=== PATIENT | male | born 1990 | race Caucasian/White ===

== ENCOUNTER 2018-12-25 08:09 | Inpatient (IN) | payer OTHER ==
[2018-12-25 09:36] VITALS: BMI 23.7
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
[2018-12-25] MEDS ORDERED: MENTHOL/PHENOL 1 EACH UD MM PRN (09:55)
[2018-12-25] MEDS ORDERED: P-EPHED 60MG/TRIPROLIDI 2.5MG TABLET PO PRN (09:55)
[2018-12-25] MEDS ORDERED: MAGNESIUM CITRATE 300 ML BOTTLE PO PRN (09:55)
[2018-12-25] MEDS ORDERED: MAGNESIUM HYDROX 2400MG/30ML ORAL SUSPENSION 30 ML CUP PO PRN (09:55)
[2018-12-25] MEDS ORDERED: guaiFENesin 200 MG/10 ML 10 ML UNIT-DOSE CUPS PO PRN (09:55)
[2018-12-25] MEDS ORDERED: MAG HYDROX/AL HYDROX/SIMETH 30 ML UNIT-DOSE CUP PO PRN (09:55)
[2018-12-25] MEDS ORDERED: LORazepam 1 MG TABLET PO PRN (09:55)
[2018-12-25] MEDS ORDERED: LOPERAMIDE HCL 2 MG CAPSULE PO PRN (09:55)
[2018-12-25] MEDS ORDERED: ACETAMINOPHEN 325 MG TABLET (FP) PO PRN (09:55)
[2018-12-25] MEDS ORDERED: hydrOXYzine PAMOATE 25 MG CAPSULE (FP) PO PRN (09:55)
[2018-12-25] MEDS ORDERED: IBUPROFEN 400 MG TABLET (FP) PO PRN (09:55)
[2018-12-25] MEDS ORDERED: LORazepam 2 MG TABLET PO SCH (11:00)
[2018-12-25 13:10] LABS: HEMATOCRIT 41.2 % (35.4-49); HEMOGLOBIN 14.1 GM/dL (11.7-16.9); MCH 30.1 pg (25.7-33.7); MCHC 34.3 g/dl (32.0-35.9); MEAN CELL VOLUME 87.5 fl (80-96); MEAN PLT VOLUME 9.5 fl (7.5-11.1); PLATELET COUNT 180 K/MM3 (134-434); RBC 4.71 M/mm3 (4.00-5.60); WHITE BLOOD COUNT 5.8 K/mm3 (4.0-10.0)
[2018-12-25 13:17] LABS: ALBUMIN 4.2 g/dl (3.4-5.0); BILIRUBIN,TOTAL 2.5 mg/dL (0.2-1); CALCIUM 8.7 mg/dL (8.5-10.1); CREATININE 0.8 mg/dL (0.55-1.3); POTASSIUM 4.4 mmol/L (3.5-5.1); TOT PROT 7.4 g/dl (6.4-8.2)
[2018-12-25] MEDS ORDERED: METHOCARBAMOL 500 MG TABLET PO PRN (15:51)
[2018-12-25] MEDS: NICOTINE 14 MG/24 HOURS TOPICAL PATCH TD SCH (15:55)
[2018-12-25] MEDS: PRENATAL VITAMINS W/ FOLIC ACID TABLET (FP) PO SCH (15:55)
--- NOTE | 2018-12-25 15:57 | PN ---
[facility] Progress Note Note: Pt is a new pt admitted to rehab today from [facility] and c/o leg pain and muscle cramps. pt reports he was at the stabilization center in [place] from Tuesday and was brought in here today for treatment. Pt reports he is using xanax and adderall sometimes Rx and sometimes buys on the street. pt reports he has a primary care provider/Prescriber Dr. Jeancarlos Guadalupe and goes to [facility] for medical management. Alert o x 3. in NAD. Below are patients medication hx from PNP online: Others' Prescriptions Patient Name: Nic Painting Date: 1990 Address: [address] [place] [address] Sex: Male Rx Written Rx Dispensed Drug Quantity Days Supply Prescriber Name 12/12/2018 12/14/2018 dextroamp-amphetamin 20 mg tab 60 30 Jeancarlos Guadalupe 12/01/2018 12/01/2018 dextroamp-amphetamin 20 mg tab 45 15 Jeancarlos Guadalupe Patient Name: Nic Painting Date: 1990 Address: [address] [place] [address] Sex: Male Rx Written Rx Dispensed Drug Quantity Days Supply Prescriber Name 11/28/2018 11/28/2018 alprazolam 2 mg tablet 90 30 Jeancarlos Guadalupe 11/28/2018 11/28/2018 dextroamp-amphetamin 15 mg tab 30 30 Jeancarlos Guadalupe 11/21/2018 11/21/2018 alprazolam 2 mg tablet 60 30 Jeancarlos Guadalupe 11/07/2018 11/07/2018 alprazolam 2 mg tablet 30 15 Jeancarlos Guadalupe 10/27/2018 10/27/2018 alprazolam 1 mg tablet 90 30 Jeancarlos Guadalupe 09/19/2018 09/21/2018 hydromorphone 4 mg tablet 28 7 Jeancarlos Guadalupe 09/19/2018 09/21/2018 alprazolam 1 mg tablet 90 30 Jeancarlos Guadalupe 09/19/2018 09/19/2018 hydromorphone 2 mg tablet 28 14 Jeancarlos Guadalupe 09/15/2018 09/15/2018 hydromorphone 4 mg tablet 28 7 Jeancarlos Guadalupe 07/10/2018 07/11/2018 dextroamp-amphetamin 30 mg tab 60 30 Anayeli, Jeancarlos Novoa 07/10/2018 07/11/2018 buprenorphine-naloxone 12-3 mg sl film 60 30 Anayeli, Jeancarlos Novoa 05/29/2018 06/30/2018 suboxone 8 mg-2 mg sl film 60 30 Anayeli, Jeancarlos Novoa 05/29/2018 06/03/2018 dextroamp-amphetamin 20 mg tab 60 30 Anayeli, Jeancarlos Novoa 05/29/2018 05/30/2018 clonazepam 1 mg tablet 30 15 AnayeliJeancarlos 03/03/2018 03/03/2018 dextroamp-amphetamin 20 mg tab 60 30 KinneyRachelle darling Npp 01/09/2018 02/02/2018 dextroamp-amphetamin 20 mg tab 60 30 KinneyRachelle Npp Patient Name: Nic Painting Date: 1990 Address: [address] [place] [address] [place] [address] Sex: Male Rx Written Rx Dispensed Drug Quantity Days Supply Prescriber Name 10/13/2018 10/19/2018 green vape 8mg thc and 8mg cbd/0.04ml dose 1 5 Jeancarlos Guadalupe 10/13/2018 10/13/2018 balance 50:50 1.41mg thc and 1.84mg cbd/inhalation 1 5 Jeancarlos Guadalupe Patient Name: Nic Painting Date: 1990 Address: [address] [place] [address] [place] [employer] [place] [place] [address] Sex: Male Rx Written Rx Dispensed Drug Quantity Days Supply Prescriber Name 10/14/2018 10/14/2018 clonazepam 1 mg tablet 90 30 AnayeliJeancarlos 10/06/2018 10/06/2018 alprazolam 2 mg tablet 90 30 Anayeli, Jeancarlos Novoa 09/01/2018 09/06/2018 buprenorphine-naloxone 4-1 mg sl film 90 30 Anayeli, Jeancarlos Novoa 09/06/2018 09/06/2018 alprazolam 1 mg tablet 75 15 Anayeli, Jeancarlos Novoa 09/06/2018 09/06/2018 dextroamp-amphetamin 15 mg tab 30 15 AnayeliJeancarlos 09/01/2018 09/02/2018 dextroamp-amphetamin 20 mg tab 60 30 Anayeli, Jeancarlos Novoa 09/01/2018 09/02/2018 clonazepam 1 mg tablet 90 30 Anayeli, Jeancarlos Novoa 08/04/2018 08/07/2018 buprenorphine-naloxone 4-1 mg sl film 90 30 Anayeli, Jeancarlos Novoa 08/04/2018 08/04/2018 dextroamp-amphetamin 20 mg tab 60 30 Anayeli, Jeancarlos Novoa 08/04/2018 08/04/2018 clonazepam 1 mg tablet 90 30 Anayeli, Jeancarlos Novoa 07/11/2018 08/04/2018 dextroamp-amphetamin 30 mg tab 60 30 Anayeli, Jeancarlos Sommer 07/26/2018 07/29/2018 suboxone 2 mg-0.5 mg sl film 30 15 Tavakkoli, Mohammad 06/30/2018 07/09/2018 clonazepam 1 mg tablet 60 20 Anayeli, Jeancarlos Novoa 06/30/2018 06/30/2018 dextroamp-amphetamin 20 mg tab 60 30 Anayeli, Jeancarlos Sommer 06/12/2018 06/20/2018 clonazepam 1 mg tablet 60 20 Anayeli, Jeancarlos Sommer 06/12/2018 06/12/2018 dextroamp-amphetamin 30 mg tab 30 30 Anayeli, Jeancarlos Sommer 05/29/2018 05/30/2018 suboxone 8 mg-2 mg sl film 60 30 Anayeli, Jeancarlos Novoa Patient Name: Nic Painting Date: 1990 Address: [facility] [place] [address] Sex: Male Rx Written Rx Dispensed Drug Quantity Days Supply Prescriber Name 09/01/2018 10/10/2018 sublocade 300 mg/1.5 ml syring 1gm 30 Anayeli Jeancarlos Novoa Patient Name: Nic Painting Date: 1990 Address: [place] [address] Sex: Male Rx Written Rx Dispensed Drug Quantity Days Supply Prescriber Name 04/19/2018 04/20/2018 dextroamp-amphetamin 20 mg tab 40 20 Anayeli, Jeancarlos Sommer 04/19/2018 04/20/2018 suboxone 8 mg-2 mg sl film 30 15 Anayeli, Jeancarlos Novoa 04/14/2018 04/14/2018 suboxone 8 mg-2 mg sl film 14 7 Anayeli, Jeancarlos Novoa 01/04/2018 01/04/2018 dextroamp-amphetamin 20 mg tab 60 30 Rachelle Kinney Npp * - Drugs marked with an asterisk are compound drugs. If the compound drug is made up of more than one controlled substance, then each controlled substance will be a separate row in the table. Click the Report Suspicious Activity button to report information related to controlled substance suspicious activity to the [place] [employer]. Click the Send Questions/Comments button to send questions about this report to the [place] [employer], or call . Click the Substance Abuse Treatment Information button to go to the Office of Alcoholism and Substance Abuse Services website, www.oasas.[place].gov or call 1- 856.680.5323. D/w Pt, will follow up with primary care provider after rehab treatment for medical management.
[2018-12-25] MEDS: DEXTROAMPHETAMINE/AMPHETAMINE 10 MG CAP.ER.24H PO SCH ×2 (17:30→21:39)
[2018-12-25] MEDS: clonazePAM 0.5 MG TABLET PO SCH ×2 (17:30→23:38)
[2018-12-25] MEDS: THIAMINE HCL 100 MG TABLET (FP) PO SCH (21:40)
[2018-12-25] MEDS ORDERED: MELATONIN 5 MG TABLETS PO PRN (22:00)
[2018-12-26] MEDS: clonazePAM 0.5 MG TABLET PO SCH ×4 (07:06→23:39)
[2018-12-26] MEDS: PRENATAL VITAMINS W/ FOLIC ACID TABLET (FP) PO SCH (10:10)
[2018-12-26] MEDS: NICOTINE 14 MG/24 HOURS TOPICAL PATCH TD SCH (10:10)
[2018-12-26] MEDS: DEXTROAMPHETAMINE/AMPHETAMINE 10 MG CAP.ER.24H PO SCH ×2 (10:10→21:44)
[2018-12-26 15:52] LABS: PH,URINE 7.5 (5.0-8.0); URINE APPEARANCE CLEAR; URINE BILIRUBIN NEGATIVE (NEGATIVE); URINE COLOR YELLOW; URINE GLUCOSE (UA) NEGATIVE (NEGATIVE); URINE KETONE NEGATIVE (NEGATIVE); URINE LEUK ESTERASE NEGATIVE (NEGATIVE); URINE NITRITE NEGATIVE (NEGATIVE); URINE PROTEIN NEGATIVE (NEGATIVE)
[2018-12-26] MEDS: THIAMINE HCL 100 MG TABLET (FP) PO SCH (21:44)
[2018-12-27] MEDS ORDERED: LORazepam 1 MG TABLET PO SCH (05:00)
[2018-12-27] MEDS: clonazePAM 0.5 MG TABLET PO SCH ×4 (05:39→23:49)
[2018-12-27] MEDS: DEXTROAMPHETAMINE/AMPHETAMINE 10 MG CAP.ER.24H PO SCH ×2 (10:03→21:26)
[2018-12-27] MEDS: NICOTINE 14 MG/24 HOURS TOPICAL PATCH TD SCH (10:03)
[2018-12-27] MEDS: PRENATAL VITAMINS W/ FOLIC ACID TABLET (FP) PO SCH (10:03)
--- NOTE | 2018-12-27 11:22 | PN ---
[facility] Progress Note Note: PT REPORTS TO NURSE THIS MORNING THAT HE WOULD LIKE TO SEE THE PSYCHIATRIST FOR HX OF ADHD-ON ADDERRAL SINCE AGE 14, DEPRESSION AND ANXIETY, AND PTSD. PATIENT WAS ALSO SEEN TODAY BY DR. GONZALES, IT INFRASTRUCTURE SPECIALIST TO DISCUSS PATIENT'S KLONOPIN TAPER AND ADDERRAL QUESTIONS PATIENT HAD. PATIENT IS AWARE THAT HE WILL CONTACT HIS PSYCHIATRIST, DR. SUMI COUCH AT [facility] FOR PLANS TO CONTINUE HIS MEDICATIONS AFTER DISCHARGE AND NO Rx WILL BE GIVEN FROM REHAB UPON DISCHARGE. PATIENT REPORTS HE HAS A PRIMARY CARE PROVIDER, DR. ZELAYA AT SAME LOCATION. Vital Signs - 24 hr 12/27/18 12/27/18 12/27/18 00:30 03:30 06:30 Temperature 97.7 F Pulse Rate 72 Respiratory 18 18 18 Rate Blood Pressure 95/62 Laboratory Tests 12/25/18 12/25/18 12/25/18 10:10 10:10 10:10 WBC 5.8 RBC 4.71 Hgb 14.1 Hct 41.2 MCV 87.5 MCH 30.1 MCHC 34.3 RDW 14.0 Plt Count 180 MPV 9.5 Sodium 137 Potassium 4.4 Chloride 101 Carbon Dioxide 29 Anion Gap 8 BUN 13.0 Creatinine 0.8 Est GFR (CKD-EPI)AfAm 139.91 Est GFR (CKD-EPI)NonAf 120.72 Random Glucose 90 Calcium 8.7 Total Bilirubin 2.5 H AST 113 H ALT 54 Alkaline Phosphatase 95 Total Protein 7.4 Albumin 4.2 Urine Color Urine Appearance Urine pH Ur Specific [place] Urine Protein Urine Glucose (UA) Urine Ketones Urine Blood Urine Nitrite Urine Bilirubin Urine Urobilinogen Ur Leukocyte Esterase RPR Titer Nonreactive 12/26/18 12:00 WBC RBC Hgb Hct MCV MCH MCHC RDW Plt Count MPV Sodium Potassium Chloride Carbon Dioxide Anion Gap BUN Creatinine Est GFR (CKD-EPI)AfAm Est GFR (CKD-EPI)NonAf Random Glucose Calcium Total Bilirubin AST ALT Alkaline Phosphatase Total Protein Albumin Urine Color Yellow Urine Appearance Clear Urine pH 7.5 Ur Specific [place] 1.013 Urine Protein Negative Urine Glucose (UA) Negative Urine Ketones Negative Urine Blood Negative Urine Nitrite Negative Urine Bilirubin Negative Urine Urobilinogen 1.0 Ur Leukocyte Esterase Negative RPR Titer A:PATIENT VERBAL HX OF PSYCH HISTORY PLAN:PSYCH CONSULT ORDERED PER PT'S REQUEST. PATIENT AGREES WITH POC DISCUSSED ABOVE TO FOLLOW UP WITH HIS PRIMARY CARE/ PSYCHIATRIST FOR MEDICAL/PSYCHIATRIC/MEDICATION MANAGEMENT AFTER REHAB.
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
[2018-12-27] MEDS: THIAMINE HCL 100 MG TABLET (FP) PO SCH (21:26)
[2018-12-28] MEDS ORDERED: LORazepam 0.5 MG TABLET PO PRN
[2018-12-28] MEDS ORDERED: LORazepam 0.5 MG TABLET PO SCH (05:00)
[2018-12-28] MEDS: clonazePAM 0.5 MG TABLET PO SCH ×4 (06:47→23:47)
[2018-12-28] MEDS: NICOTINE 14 MG/24 HOURS TOPICAL PATCH TD SCH (11:00)
[2018-12-28] MEDS: PRENATAL VITAMINS W/ FOLIC ACID TABLET (FP) PO SCH (11:00)
[2018-12-28] MEDS: DEXTROAMPHETAMINE/AMPHETAMINE 10 MG CAP.ER.24H PO SCH ×2 (11:00→21:22)
[2018-12-28] MEDS: THIAMINE HCL 100 MG TABLET (FP) PO SCH (21:22)
[2018-12-29] MEDS ORDERED: LORazepam 0.5 MG TABLET PO ONE (05:00)
[2018-12-29] MEDS: clonazePAM 0.5 MG TABLET PO SCH ×3 (06:43→18:00)
[2018-12-29] MEDS: NICOTINE 14 MG/24 HOURS TOPICAL PATCH TD SCH (10:13)
[2018-12-29] MEDS: PRENATAL VITAMINS W/ FOLIC ACID TABLET (FP) PO SCH (10:13)
[2018-12-29] MEDS: DEXTROAMPHETAMINE/AMPHETAMINE 10 MG CAP.ER.24H PO SCH ×2 (10:13→21:52)
[2018-12-29] MEDS: THIAMINE HCL 100 MG TABLET (FP) PO SCH (21:51)
[2018-12-30] MEDS: clonazePAM 0.5 MG TABLET PO SCH ×4 (00:23→17:51)
[2018-12-30] MEDS: DEXTROAMPHETAMINE/AMPHETAMINE 10 MG CAP.ER.24H PO SCH ×2 (10:03→21:33)
[2018-12-30] MEDS: NICOTINE 14 MG/24 HOURS TOPICAL PATCH TD SCH (10:03)
[2018-12-30] MEDS: PRENATAL VITAMINS W/ FOLIC ACID TABLET (FP) PO SCH (10:04)
[2018-12-30] MEDS: THIAMINE HCL 100 MG TABLET (FP) PO SCH (21:33)
[2018-12-31] MEDS: clonazePAM 0.5 MG TABLET PO SCH ×4 (06:41→18:00)
[2018-12-31] MEDS: DEXTROAMPHETAMINE/AMPHETAMINE 10 MG CAP.ER.24H PO SCH ×2 (10:39→21:54)
[2018-12-31] MEDS: PRENATAL VITAMINS W/ FOLIC ACID TABLET (FP) PO SCH (10:40)
[2018-12-31] MEDS: NICOTINE 14 MG/24 HOURS TOPICAL PATCH TD SCH (10:40)
[2018-12-31] MEDS: THIAMINE HCL 100 MG TABLET (FP) PO SCH (21:54)
[2019-01-01] MEDS: clonazePAM 0.5 MG TABLET PO SCH ×4 (00:23→21:29)
[2019-01-01] MEDS: NICOTINE 14 MG/24 HOURS TOPICAL PATCH TD SCH (10:42)
[2019-01-01] MEDS: PRENATAL VITAMINS W/ FOLIC ACID TABLET (FP) PO SCH (10:42)
[2019-01-01] MEDS ORDERED: DEXTROAMPHETAMINE/AMPHETAMINE 10 MG CAP.ER.24H PO ONE (13:00)
[2019-01-01] MEDS: THIAMINE HCL 100 MG TABLET (FP) PO SCH (21:29)
[2019-01-01] MEDS: DEXTROAMPHETAMINE/AMPHETAMINE 10 MG CAP.ER.24H PO SCH (21:29)
[2019-01-02] MEDS: DEXTROAMPHETAMINE/AMPHETAMINE 10 MG CAP.ER.24H PO SCH ×2 (10:20→21:21)
[2019-01-02] MEDS: clonazePAM 0.5 MG TABLET PO SCH ×2 (10:20→21:20)
[2019-01-02] MEDS: PRENATAL VITAMINS W/ FOLIC ACID TABLET (FP) PO SCH (10:21)
[2019-01-02] MEDS: NICOTINE 14 MG/24 HOURS TOPICAL PATCH TD SCH (10:21)
[2019-01-02] MEDS: THIAMINE HCL 100 MG TABLET (FP) PO SCH (21:21)
[2019-01-03] MEDS: PRENATAL VITAMINS W/ FOLIC ACID TABLET (FP) PO SCH (10:04)
[2019-01-03] MEDS: NICOTINE 14 MG/24 HOURS TOPICAL PATCH TD SCH (10:04)
[2019-01-03] MEDS: clonazePAM 0.5 MG TABLET PO SCH ×2 (10:05→21:21)
[2019-01-03] MEDS: DEXTROAMPHETAMINE/AMPHETAMINE 10 MG CAP.ER.24H PO SCH ×2 (10:05→21:21)
[2019-01-03] MEDS: THIAMINE HCL 100 MG TABLET (FP) PO SCH (21:22)
[2019-01-04] MEDS: NICOTINE 14 MG/24 HOURS TOPICAL PATCH TD SCH (10:12)
[2019-01-04] MEDS: DEXTROAMPHETAMINE/AMPHETAMINE 10 MG CAP.ER.24H PO SCH ×2 (10:12→21:21)
[2019-01-04] MEDS: PRENATAL VITAMINS W/ FOLIC ACID TABLET (FP) PO SCH (10:12)
[2019-01-04] MEDS: clonazePAM 0.5 MG TABLET PO SCH ×2 (10:13→21:21)
[2019-01-04] MEDS: THIAMINE HCL 100 MG TABLET (FP) PO SCH (21:22)
[2019-01-05] MEDS: PRENATAL VITAMINS W/ FOLIC ACID TABLET (FP) PO SCH (10:11)
[2019-01-05] MEDS: NICOTINE 14 MG/24 HOURS TOPICAL PATCH TD SCH (10:11)
[2019-01-05] MEDS: clonazePAM 0.5 MG TABLET PO SCH ×2 (10:11→21:42)
[2019-01-05] MEDS: DEXTROAMPHETAMINE/AMPHETAMINE 10 MG CAP.ER.24H PO SCH ×2 (10:11→21:42)
[2019-01-05] MEDS: THIAMINE HCL 100 MG TABLET (FP) PO SCH (21:42)
[2019-01-06] MEDS: DEXTROAMPHETAMINE/AMPHETAMINE 10 MG CAP.ER.24H PO SCH ×2 (09:45→09:55)
[2019-01-06] MEDS: clonazePAM 0.5 MG TABLET PO SCH ×2 (09:45→09:55)
[2019-01-06] MEDS: PRENATAL VITAMINS W/ FOLIC ACID TABLET (FP) PO SCH (09:55)
[2019-01-06] MEDS: NICOTINE 14 MG/24 HOURS TOPICAL PATCH TD SCH (09:55)
[2019-01-06] MEDS: THIAMINE HCL 100 MG TABLET (FP) PO SCH (21:44)
[2019-01-07] MEDS: clonazePAM 0.5 MG TABLET PO SCH ×2 (09:51→21:18)
[2019-01-07] MEDS: DEXTROAMPHETAMINE/AMPHETAMINE 10 MG CAP.ER.24H PO SCH ×2 (09:51→21:18)
[2019-01-07] MEDS: PRENATAL VITAMINS W/ FOLIC ACID TABLET (FP) PO SCH (09:52)
[2019-01-07] MEDS: NICOTINE 14 MG/24 HOURS TOPICAL PATCH TD SCH (09:52)
[2019-01-07] MEDS: THIAMINE HCL 100 MG TABLET (FP) PO SCH (21:18)
[2019-01-08 07:09] VITALS: BP 101/62; PULSE 91; TEMP 97.9
[2019-01-08] MEDS: clonazePAM 0.5 MG TABLET PO SCH (09:20)
[2019-01-08] MEDS: PRENATAL VITAMINS W/ FOLIC ACID TABLET (FP) PO SCH (09:20)
[2019-01-08] MEDS: DEXTROAMPHETAMINE/AMPHETAMINE 10 MG CAP.ER.24H PO SCH (09:21)
[2019-01-08] MEDS: NICOTINE 14 MG/24 HOURS TOPICAL PATCH TD SCH (10:00)
--- NOTE | 2019-01-08 12:08 | DS ---
[facility] Rehab Discharge Summary - [facility] Rehab Discharge Summary Admission Date: 12/25/18 Discharge Date: 01/08/19 - History Present History: Opioid dependence, Sedative dependence - Discharge Physical Exam Vital Signs: Vital Signs Temperature 97.9 F 01/08/19 07:08 Pulse Rate 91 H 01/08/19 07:08 Respiratory Rate 18 01/08/19 07:08 Blood Pressure 101/62 01/08/19 07:08 O2 Sat by Pulse Oximetry (%) - Treatment Discharge Condition: Outpatient referral accepted (Patient to continue aftercare with [facility] in [place], [place]) Hospital Course: Patient completed rehab and was able to attend group meetings and meet all goals. - Medication Discharge Medications: Ambulatory Orders Alprazolam [Xanax] 2 mg PO BID 12/28/18 Dextroamphetamine/Amphetamine [Adderall 10 mg Tablet] 20 mg PO BID 12/28/18 - Medication-Assisted Treatment (MAT) Medication-Assisted Treatment (MAT): No - Discharge Instructions Diet, activity, other medical instructions: Diet:Regular Activity: OOB ad rojas Other medical instructions: Patient to follow up with Dr. Jeancarlos Guadalupe PCP today at 10:30am at [facility] - AMA Did Patient Leave Against Medical Advice: No
== END 2019-01-08 09:35 | disposition home or self-care (01) | DRG 772 ==
LOC: YASAS 08:09 → Y5N 11:53
PROVIDERS: ADMIT Neuromusculoskeletal Medicine & OMM; ATTEND Neuromusculoskeletal Medicine & OMM
PROC: HZ42ZZZ Group Counseling for Substance Abuse Treatment, Cognitive-Behavioral (ICD-10-PCS; principal; 2018-12-25)
DX: F11.20 Opioid dependence, uncomplicated (principal); F13.20 Sedative, hypnotic or anxiolytic dependence, uncomplicated; F17.210 Nicotine dependence, cigarettes, uncomplicated; F90.9 Attention-deficit hyperactivity disorder, unspecified type; Z86.69 Personal history of other diseases of the nervous system and sense organs; Z88.0 Allergy status to penicillin
CPT/HCPCS: 36415; 80053; 81003; 85027; 86480; 86593

== ENCOUNTER 2020-07-01 18:46 | Inpatient (IN) | payer OTHER ==
[2020-07-01 19:14] VITALS: BMI 22.3
[2020-07-01] MEDS ORDERED: LOPERAMIDE HCL 2 MG CAPSULE PO PRN (23:41)
[2020-07-01] MEDS ORDERED: MAGNESIUM CITRATE 300 ML BOTTLE PO PRN (23:41)
[2020-07-01] MEDS ORDERED: MAGNESIUM HYDROX 2400MG/30ML ORAL SUSPENSION 30 ML CUP PO PRN (23:41)
[2020-07-01] MEDS ORDERED: guaiFENesin 200 MG/10 ML 10 ML UNIT-DOSE CUPS PO PRN (23:41)
[2020-07-01] MEDS ORDERED: P-EPHED 60MG/TRIPROLIDI 2.5MG TABLET PO PRN (23:41)
[2020-07-01] MEDS ORDERED: IBUPROFEN 400 MG TABLET (FP) PO PRN (23:41)
[2020-07-01] MEDS ORDERED: MAG HYDROX/AL HYDROX/SIMETH 30 ML UNIT-DOSE CUP PO PRN (23:41)
[2020-07-02] MEDS ORDERED: TUBERCULIN PPD 5 TU/0.1ML VIAL ID ONE (01:06)
[2020-07-02] MEDS: MELATONIN 5 MG TABLETS PO SCH ×2 (01:27→21:19)
[2020-07-02] MEDS: PRENATAL VITAMINS W/ FOLIC ACID TABLET (FP) PO SCH (09:58)
[2020-07-02] MEDS: NICOTINE 21 MG/24 HOURS TOPICAL PATCH TD SCH (09:58)
[2020-07-02] MEDS: NICOTINE POLACRILEX 2 MG GUM BC PRN ×2 (09:58→21:20)
[2020-07-02 11:19] LABS: HEMATOCRIT 42.4 % (35.4-49); HEMOGLOBIN 14.6 GM/dL (11.7-16.9); MCH 32.4 pg (25.7-33.7); MCHC 34.4 g/dl (32.0-35.9); MEAN CELL VOLUME 94.3 fl (80-96); MEAN PLT VOLUME 8.7 fl (7.5-11.1); PLATELET COUNT 232 K/MM3 (134-434); RBC 4.49 M/mm3 (4.00-5.60); RDW 13.1 % (11.9-15.9); WHITE BLOOD COUNT 6.7 K/mm3 (4.0-10.0)
[2020-07-02 11:22] LABS: ALBUMIN 3.8 g/dl (3.4-5.0)
[2020-07-02 11:23] LABS: BLOOD UREA NITROGEN 20.1 mg/dL (7-18)
[2020-07-02 11:25] LABS: CALCIUM 8.8 mg/dL (8.5-10.1)
[2020-07-02 11:31] LABS: CREATININE 0.9 mg/dL (0.55-1.3)
[2020-07-02 11:33] LABS: BILIRUBIN,TOTAL 0.4 mg/dL (0.2-1); TOT PROT 6.9 g/dl (6.4-8.2)
[2020-07-02 19:21] LABS: PH,URINE >= 9.0 (5.0-8.0); URINE APPEARANCE CLEAR; URINE BILIRUBIN NEGATIVE (NEGATIVE); URINE COLOR YELLOW; URINE GLUCOSE (UA) NEGATIVE (NEGATIVE); URINE KETONE NEGATIVE (NEGATIVE); URINE LEUK ESTERASE NEGATIVE (NEGATIVE); URINE NITRITE NEGATIVE (NEGATIVE); URINE PROTEIN NEGATIVE (NEGATIVE); URINE UROBILINOGEN 0.2 mg/dL (0.2-1.0)
[2020-07-02] MEDS: THIAMINE HCL 100 MG TABLET (FP) PO SCH (21:19)
[2020-07-03] MEDS: PRENATAL VITAMINS W/ FOLIC ACID TABLET (FP) PO SCH (10:25)
[2020-07-03] MEDS: NICOTINE POLACRILEX 2 MG GUM BC PRN ×2 (10:26→19:35)
[2020-07-03] MEDS: NICOTINE 21 MG/24 HOURS TOPICAL PATCH TD SCH (10:26)
[2020-07-03] MEDS: THIAMINE HCL 100 MG TABLET (FP) PO SCH (21:27)
[2020-07-03] MEDS: MELATONIN 5 MG TABLETS PO SCH (21:27)
[2020-07-04] MEDS: NICOTINE POLACRILEX 2 MG GUM BC PRN ×2 (07:05→10:00)
[2020-07-04] MEDS: NICOTINE 21 MG/24 HOURS TOPICAL PATCH TD SCH (10:00)
[2020-07-04] MEDS: PRENATAL VITAMINS W/ FOLIC ACID TABLET (FP) PO SCH (10:00)
[2020-07-04] MEDS: hydrOXYzine PAMOATE 25 MG CAPSULE (FP) PO PRN (10:00)
[2020-07-04] MEDS: THIAMINE HCL 100 MG TABLET (FP) PO SCH (23:06)
[2020-07-04] MEDS: MELATONIN 5 MG TABLETS PO SCH (23:06)
[2020-07-05] MEDS: PRENATAL VITAMINS W/ FOLIC ACID TABLET (FP) PO SCH (09:56)
[2020-07-05] MEDS: NICOTINE 21 MG/24 HOURS TOPICAL PATCH TD SCH (09:56)
[2020-07-05] MEDS: NICOTINE POLACRILEX 2 MG GUM BC PRN ×2 (09:56→21:11)
[2020-07-05] MEDS: hydrOXYzine PAMOATE 25 MG CAPSULE (FP) PO PRN (21:11)
[2020-07-05] MEDS: MELATONIN 5 MG TABLETS PO SCH (21:11)
[2020-07-05] MEDS: THIAMINE HCL 100 MG TABLET (FP) PO SCH (21:11)
[2020-07-06] MEDS: NICOTINE 21 MG/24 HOURS TOPICAL PATCH TD SCH (10:04)
[2020-07-06] MEDS: NICOTINE POLACRILEX 2 MG GUM BC PRN ×2 (10:04→21:30)
[2020-07-06] MEDS: PRENATAL VITAMINS W/ FOLIC ACID TABLET (FP) PO SCH (10:04)
[2020-07-06] MEDS: THIAMINE HCL 100 MG TABLET (FP) PO SCH (21:29)
[2020-07-06] MEDS: MELATONIN 5 MG TABLETS PO SCH (21:29)
[2020-07-06] MEDS: hydrOXYzine PAMOATE 25 MG CAPSULE (FP) PO PRN (21:30)
[2020-07-07] MEDS: PRENATAL VITAMINS W/ FOLIC ACID TABLET (FP) PO SCH (10:13)
[2020-07-07] MEDS: NICOTINE 21 MG/24 HOURS TOPICAL PATCH TD SCH (10:14)
[2020-07-07] MEDS: NICOTINE POLACRILEX 2 MG GUM BC PRN ×3 (10:14→21:18)
[2020-07-07] MEDS: THIAMINE HCL 100 MG TABLET (FP) PO SCH (21:17)
[2020-07-07] MEDS: MELATONIN 5 MG TABLETS PO SCH (21:17)
[2020-07-08] MEDS: NICOTINE POLACRILEX 2 MG GUM BC PRN ×4 (06:38→21:33)
[2020-07-08] MEDS: PRENATAL VITAMINS W/ FOLIC ACID TABLET (FP) PO SCH (10:19)
[2020-07-08] MEDS: NICOTINE 21 MG/24 HOURS TOPICAL PATCH TD SCH (10:20)
[2020-07-08] MEDS: MELATONIN 5 MG TABLETS PO SCH (21:32)
[2020-07-08] MEDS: THIAMINE HCL 100 MG TABLET (FP) PO SCH (21:32)
[2020-07-09] MEDS: NICOTINE POLACRILEX 2 MG GUM BC PRN ×4 (06:39→21:16)
[2020-07-09] MEDS: NICOTINE 21 MG/24 HOURS TOPICAL PATCH TD SCH (10:13)
[2020-07-09] MEDS: PRENATAL VITAMINS W/ FOLIC ACID TABLET (FP) PO SCH (10:13)
[2020-07-09] MEDS: MELATONIN 5 MG TABLETS PO SCH (21:15)
[2020-07-09] MEDS: THIAMINE HCL 100 MG TABLET (FP) PO SCH (21:15)
[2020-07-10] MEDS: NICOTINE POLACRILEX 2 MG GUM BC PRN ×3 (05:58→21:32)
[2020-07-10] MEDS: hydrOXYzine PAMOATE 25 MG CAPSULE (FP) PO PRN (10:23)
[2020-07-10] MEDS: PRENATAL VITAMINS W/ FOLIC ACID TABLET (FP) PO SCH (10:23)
[2020-07-10] MEDS: NICOTINE 21 MG/24 HOURS TOPICAL PATCH TD SCH (10:29)
[2020-07-10] MEDS: THIAMINE HCL 100 MG TABLET (FP) PO SCH (21:31)
[2020-07-10] MEDS: MELATONIN 5 MG TABLETS PO SCH (21:31)
[2020-07-11] MEDS: PRENATAL VITAMINS W/ FOLIC ACID TABLET (FP) PO SCH (10:09)
[2020-07-11] MEDS: NICOTINE 21 MG/24 HOURS TOPICAL PATCH TD SCH (10:10)
[2020-07-11] MEDS: NICOTINE POLACRILEX 2 MG GUM BC PRN ×4 (10:10→21:14)
[2020-07-11] MEDS: MELATONIN 5 MG TABLETS PO SCH (21:13)
[2020-07-11] MEDS: THIAMINE HCL 100 MG TABLET (FP) PO SCH (21:13)
[2020-07-12] MEDS: NICOTINE 21 MG/24 HOURS TOPICAL PATCH TD SCH (10:14)
[2020-07-12] MEDS: NICOTINE POLACRILEX 2 MG GUM BC PRN ×3 (10:14→21:26)
[2020-07-12] MEDS: PRENATAL VITAMINS W/ FOLIC ACID TABLET (FP) PO SCH (10:14)
[2020-07-12] MEDS: THIAMINE HCL 100 MG TABLET (FP) PO SCH (21:25)
[2020-07-12] MEDS: MELATONIN 5 MG TABLETS PO SCH (21:25)
[2020-07-13] MEDS: NICOTINE 21 MG/24 HOURS TOPICAL PATCH TD SCH (10:02)
[2020-07-13] MEDS: PRENATAL VITAMINS W/ FOLIC ACID TABLET (FP) PO SCH (10:02)
[2020-07-13] MEDS: NICOTINE POLACRILEX 2 MG GUM BC PRN ×2 (10:03→21:10)
[2020-07-13] MEDS: MELATONIN 5 MG TABLETS PO SCH (21:10)
[2020-07-13] MEDS: THIAMINE HCL 100 MG TABLET (FP) PO SCH (21:10)
[2020-07-14] MEDS: NICOTINE POLACRILEX 2 MG GUM BC PRN ×4 (06:21→21:33)
[2020-07-14] MEDS: PRENATAL VITAMINS W/ FOLIC ACID TABLET (FP) PO SCH (10:14)
[2020-07-14] MEDS: NICOTINE 21 MG/24 HOURS TOPICAL PATCH TD SCH (10:15)
[2020-07-14] MEDS: MELATONIN 5 MG TABLETS PO SCH (21:33)
[2020-07-14] MEDS: THIAMINE HCL 100 MG TABLET (FP) PO SCH (21:33)
[2020-07-15] MEDS: NICOTINE POLACRILEX 2 MG GUM BC PRN ×3 (06:42→21:07)
[2020-07-15] MEDS: hydrOXYzine PAMOATE 25 MG CAPSULE (FP) PO PRN (10:05)
[2020-07-15] MEDS: NICOTINE 21 MG/24 HOURS TOPICAL PATCH TD SCH (10:05)
[2020-07-15] MEDS: PRENATAL VITAMINS W/ FOLIC ACID TABLET (FP) PO SCH (10:05)
[2020-07-15] MEDS: MELATONIN 5 MG TABLETS PO SCH (21:06)
[2020-07-15] MEDS: THIAMINE HCL 100 MG TABLET (FP) PO SCH (21:06)
[2020-07-16] MEDS: NICOTINE POLACRILEX 2 MG GUM BC PRN ×4 (06:44→21:41)
[2020-07-16] MEDS: NICOTINE 21 MG/24 HOURS TOPICAL PATCH TD SCH (10:01)
[2020-07-16] MEDS: hydrOXYzine PAMOATE 25 MG CAPSULE (FP) PO PRN (10:01)
[2020-07-16] MEDS: PRENATAL VITAMINS W/ FOLIC ACID TABLET (FP) PO SCH (10:01)
[2020-07-16] MEDS: MELATONIN 5 MG TABLETS PO SCH (21:41)
[2020-07-16] MEDS: THIAMINE HCL 100 MG TABLET (FP) PO SCH (21:41)
[2020-07-17] MEDS: NICOTINE POLACRILEX 2 MG GUM BC PRN ×3 (06:16→21:07)
[2020-07-17] MEDS: PRENATAL VITAMINS W/ FOLIC ACID TABLET (FP) PO SCH (10:22)
[2020-07-17] MEDS: NICOTINE 21 MG/24 HOURS TOPICAL PATCH TD SCH (10:23)
[2020-07-17] MEDS: MELATONIN 5 MG TABLETS PO SCH (21:07)
[2020-07-17] MEDS: THIAMINE HCL 100 MG TABLET (FP) PO SCH (21:07)
[2020-07-18] MEDS: NICOTINE POLACRILEX 2 MG GUM BC PRN ×4 (06:25→21:15)
[2020-07-18] MEDS: NICOTINE 21 MG/24 HOURS TOPICAL PATCH TD SCH (10:25)
[2020-07-18] MEDS: PRENATAL VITAMINS W/ FOLIC ACID TABLET (FP) PO SCH (10:25)
[2020-07-18] MEDS: THIAMINE HCL 100 MG TABLET (FP) PO SCH (21:15)
[2020-07-18] MEDS: MELATONIN 5 MG TABLETS PO SCH (21:15)
[2020-07-19] MEDS: NICOTINE POLACRILEX 2 MG GUM BC PRN ×2 (06:39→10:05)
[2020-07-19] MEDS: PRENATAL VITAMINS W/ FOLIC ACID TABLET (FP) PO SCH (10:04)
[2020-07-19] MEDS: NICOTINE 21 MG/24 HOURS TOPICAL PATCH TD SCH (10:04)
[2020-07-19] MEDS: MELATONIN 5 MG TABLETS PO SCH (21:52)
[2020-07-19] MEDS: THIAMINE HCL 100 MG TABLET (FP) PO SCH (21:52)
[2020-07-20] MEDS: NICOTINE POLACRILEX 2 MG GUM BC PRN ×3 (06:34→21:43)
[2020-07-20] MEDS: NICOTINE 21 MG/24 HOURS TOPICAL PATCH TD SCH (10:15)
[2020-07-20] MEDS: PRENATAL VITAMINS W/ FOLIC ACID TABLET (FP) PO SCH (10:15)
[2020-07-20] MEDS: MELATONIN 5 MG TABLETS PO SCH (21:41)
[2020-07-20] MEDS: THIAMINE HCL 100 MG TABLET (FP) PO SCH (21:41)
[2020-07-20] MEDS: hydrOXYzine PAMOATE 25 MG CAPSULE (FP) PO PRN (21:42)
[2020-07-21] MEDS: NICOTINE POLACRILEX 2 MG GUM BC PRN ×4 (06:10→20:09)
[2020-07-21] MEDS: NICOTINE 21 MG/24 HOURS TOPICAL PATCH TD SCH (10:41)
[2020-07-21] MEDS: PRENATAL VITAMINS W/ FOLIC ACID TABLET (FP) PO SCH (10:41)
[2020-07-21] MEDS: THIAMINE HCL 100 MG TABLET (FP) PO SCH (21:08)
[2020-07-21] MEDS: MELATONIN 5 MG TABLETS PO SCH (21:08)
[2020-07-22] MEDS: NICOTINE POLACRILEX 2 MG GUM BC PRN ×5 (06:28→21:49)
[2020-07-22] MEDS: PRENATAL VITAMINS W/ FOLIC ACID TABLET (FP) PO SCH (10:24)
[2020-07-22] MEDS: NICOTINE 21 MG/24 HOURS TOPICAL PATCH TD SCH (10:24)
[2020-07-22] MEDS: MELATONIN 5 MG TABLETS PO SCH (21:47)
[2020-07-22] MEDS: THIAMINE HCL 100 MG TABLET (FP) PO SCH (21:47)
[2020-07-23] MEDS: NICOTINE POLACRILEX 2 MG GUM BC PRN ×3 (06:52→21:09)
[2020-07-23] MEDS: PRENATAL VITAMINS W/ FOLIC ACID TABLET (FP) PO SCH (10:22)
[2020-07-23] MEDS: hydrOXYzine PAMOATE 25 MG CAPSULE (FP) PO PRN (10:22)
[2020-07-23] MEDS: NICOTINE 21 MG/24 HOURS TOPICAL PATCH TD SCH (10:24)
[2020-07-23] MEDS: MELATONIN 5 MG TABLETS PO SCH (21:08)
[2020-07-23] MEDS: THIAMINE HCL 100 MG TABLET (FP) PO SCH (21:08)
[2020-07-24] MEDS: NICOTINE POLACRILEX 2 MG GUM BC PRN ×4 (06:58→21:37)
[2020-07-24] MEDS: hydrOXYzine PAMOATE 25 MG CAPSULE (FP) PO PRN (10:19)
[2020-07-24] MEDS: PRENATAL VITAMINS W/ FOLIC ACID TABLET (FP) PO SCH (10:19)
[2020-07-24] MEDS: NICOTINE 21 MG/24 HOURS TOPICAL PATCH TD SCH (10:19)
[2020-07-24] MEDS: THIAMINE HCL 100 MG TABLET (FP) PO SCH (21:36)
[2020-07-24] MEDS: MELATONIN 5 MG TABLETS PO SCH (21:36)
[2020-07-25] MEDS: NICOTINE POLACRILEX 2 MG GUM BC PRN ×3 (06:42→16:52)
[2020-07-25] MEDS: PRENATAL VITAMINS W/ FOLIC ACID TABLET (FP) PO SCH (10:46)
[2020-07-25] MEDS: NICOTINE 21 MG/24 HOURS TOPICAL PATCH TD SCH (10:47)
[2020-07-25] MEDS: MELATONIN 5 MG TABLETS PO SCH (23:18)
[2020-07-25] MEDS: THIAMINE HCL 100 MG TABLET (FP) PO SCH (23:18)
[2020-07-26] MEDS: NICOTINE POLACRILEX 2 MG GUM BC PRN ×4 (06:12→21:39)
[2020-07-26] MEDS: PRENATAL VITAMINS W/ FOLIC ACID TABLET (FP) PO SCH (10:22)
[2020-07-26] MEDS: NICOTINE 21 MG/24 HOURS TOPICAL PATCH TD SCH (10:22)
[2020-07-26] MEDS: THIAMINE HCL 100 MG TABLET (FP) PO SCH (21:39)
[2020-07-26] MEDS: MELATONIN 5 MG TABLETS PO SCH (21:39)
[2020-07-27] MEDS: NICOTINE POLACRILEX 2 MG GUM BC PRN ×4 (06:29→21:12)
[2020-07-27] MEDS: NICOTINE 21 MG/24 HOURS TOPICAL PATCH TD SCH (10:36)
[2020-07-27] MEDS: hydrOXYzine PAMOATE 25 MG CAPSULE (FP) PO PRN ×2 (10:36→21:11)
[2020-07-27] MEDS: PRENATAL VITAMINS W/ FOLIC ACID TABLET (FP) PO SCH (10:36)
[2020-07-27] MEDS: THIAMINE HCL 100 MG TABLET (FP) PO SCH (21:10)
[2020-07-27] MEDS: MELATONIN 5 MG TABLETS PO SCH (21:11)
[2020-07-28] MEDS: NICOTINE POLACRILEX 2 MG GUM BC PRN ×2 (06:12→21:30)
[2020-07-28] MEDS: hydrOXYzine PAMOATE 25 MG CAPSULE (FP) PO PRN ×2 (10:38→21:30)
[2020-07-28] MEDS: NICOTINE 21 MG/24 HOURS TOPICAL PATCH TD SCH (10:38)
[2020-07-28] MEDS: PRENATAL VITAMINS W/ FOLIC ACID TABLET (FP) PO SCH (10:38)
[2020-07-28] MEDS: ACETAMINOPHEN 325 MG TABLET (FP) PO PRN (10:43)
[2020-07-28] MEDS: THIAMINE HCL 100 MG TABLET (FP) PO SCH (21:30)
[2020-07-28] MEDS: MELATONIN 5 MG TABLETS PO SCH (21:30)
[2020-07-29] MEDS: ACETAMINOPHEN 325 MG TABLET (FP) PO PRN ×2 (10:26→21:13)
[2020-07-29] MEDS: hydrOXYzine PAMOATE 25 MG CAPSULE (FP) PO PRN ×2 (10:27→21:13)
[2020-07-29] MEDS: PRENATAL VITAMINS W/ FOLIC ACID TABLET (FP) PO SCH (10:28)
[2020-07-29] MEDS: NICOTINE 21 MG/24 HOURS TOPICAL PATCH TD SCH (10:28)
[2020-07-29] MEDS: MELATONIN 5 MG TABLETS PO SCH (21:13)
[2020-07-29] MEDS: THIAMINE HCL 100 MG TABLET (FP) PO SCH (21:13)
[2020-07-29] MEDS: NICOTINE POLACRILEX 2 MG GUM BC PRN (21:14)
[2020-07-30 06:48] VITALS: BP 124/79; PULSE 73; TEMP 98.1
[2020-07-30] MEDS: PRENATAL VITAMINS W/ FOLIC ACID TABLET (FP) PO SCH (10:24)
[2020-07-30] MEDS: NICOTINE 21 MG/24 HOURS TOPICAL PATCH TD SCH (10:24)
[2020-07-30] MEDS: NICOTINE POLACRILEX 2 MG GUM BC PRN (10:24)
== END 2020-07-30 10:20 | disposition home or self-care (01) | DRG 772 ==
LOC: YASAS 18:46 → Y3W 07-02 00:51
PROVIDERS: ADMIT Allergy & Immunology; ATTEND Allergy & Immunology
PROC: HZ42ZZZ Group Counseling for Substance Abuse Treatment, Cognitive-Behavioral (ICD-10-PCS; principal; 2020-07-02)
DX: F10.20 Alcohol dependence, uncomplicated (principal); F10.280 Alcohol dependence with alcohol-induced anxiety disorder; F12.20 Cannabis dependence, uncomplicated; F17.210 Nicotine dependence, cigarettes, uncomplicated; F43.10 Post-traumatic stress disorder, unspecified; F90.9 Attention-deficit hyperactivity disorder, unspecified type; F41.9 Anxiety disorder, unspecified; Z62.810 Personal history of physical and sexual abuse in childhood; Z87.81 Personal history of (healed) traumatic fracture; Z98.890 Other specified postprocedural states; Z88.0 Allergy status to penicillin; Z91.018 Allergy to other foods; Z56.0 Unemployment, unspecified; Z59.0 Homelessness
CPT/HCPCS: 36415; 71046-TC-FY; 80053; 81003; 85027; 86780; 93005; 93010; C9803; U0003